=== PATIENT | female | born 1960 | race African-American/Black ===

== ENCOUNTER 2021-10-26 08:49 | Outpatient (CLI) | payer BC | END 2021-10-26 08:50 | disposition home or self-care (01) | LOC: BICCT 08:49 | DX: K86.89 Other specified diseases of pancreas (principal); K86.1 Other chronic pancreatitis; K83.8 Other specified diseases of biliary tract; N28.1 Cyst of kidney, acquired; I70.0 Atherosclerosis of aorta; Z96.89 Presence of other specified functional implants | CPT/HCPCS: 74177; 82565 ==